=== PATIENT | male | born 1980 | race Caucasian/White ===

== ENCOUNTER 2017-04-21 19:51 | Emergency (ER) | payer OTHER ==
[~2017-04-21] VITALS: Ht 176.5 cm; Wt 97.7 kg
[2017-04-21 19:54] VITALS: BP 139/96; PULSE 107; RESP 21; O2SAT 97
[2017-04-21 21:07] LABS: BASOPHILS % (AUTO) 0.2 % (0-3); EOSINOPHILS % (AUTO) 1.9 % (0-5); MONOCYTES % (AUTO) 5.5 % (4-12); Mean Corpuscular Hemoglobin 32.2 pg (27.0-35.0); NEUTROPHILS % (AUTO) 62.1 % (40-74); Platelet Count 273 bil/L (150-400)
--- NOTE | 2017-04-21 21:07 | DRSVH ---
PROCEDURE: X-RAY CHEST ONE VIEW, PORTABLE ([id number]) INDICATIONS: Heart palpitations, possible bradycardia TECHNIQUE: One view of the chest was acquired. COMPARISON: None. FINDINGS: Surgical changes and devices: None. Lungs and pleura: No pleural effusions or pneumothorax. Lungs are clear. Mediastinum: Mediastinal contours appear normal. Heart size is normal. Bones and chest wall: No suspicious bony lesions. Overlying soft tissues appear unremarkable. IMPRESSION: No acute cardiopulmonary findings. Dictated by: Dia Caldwell M.D. on 04/21/2017 at 21:06 Approved by: Dia Caldwell M.D. on 04/21/2017 at 21:06
[2017-04-21 21:29] LABS: TROPONIN T 0.01 ug/L (0.0-0.011)
[2017-04-21 21:41] LABS: Magnesium 2.1 mg/dL (1.6-2.6)
[2017-04-21 21:53] VITALS: BP 149/99; PULSE 88; RESP 17; O2SAT 96
--- NOTE | 2017-04-21 21:54 | ED.REPORT ---
HPI-General Illness Date of Service Apr 21, 2017 ED Provider: Roderick Levi MD 36 y/o male with a hx of anxiety presents to the ED complaining of heart palpitations, onset this morning. The pt repeats "I am so nervous right now. I am afraid I might need surgery" while providing history. He states he has experienced palpitations "most of his life" but he was concerned today because his heart rate was also dropping to 35. He feels like it is more noticeable when he lays down. He denies diaphoresis, nausea, chest pain and limitation of daily activities or exertion due to pain or shortness of breath. Nursing Notes Stated Complaint: HEART PALPITATIONS, LOW PULSE RATE Chief Complaint: General Complaint Nursing Notes Reviewed: Yes Allergies: Coded Allergies: No Known Allergies (Unverified , 04/21/17) Scheduled Nicotine 14 mg/24 hr Patch (Nicotine 14 mg/24 hr Patch) 1 Each Patch.td24 1 PATCH TRANSDERM DAILY Nicotine 21 mg/24 hr Patch (Nicotine 21 mg/24 hr Patch) 1 Each Patch.dysq 1 PATCH TRANSDERM DAILY Nicotine 7 mg/24 hr Patch (Nicotine 7 mg/24 hr Patch) 1 Each Patch.td24 1 PATCH TRANSDERM DAILY General Time Seen by MD: 21:50 Chief Complaint Other (palpitations) Hx Obtained From: Patient Arrived By: Walk-in Sudden in Onset?: No Onset Occurred: 9 - 12 hours ago Symptom Duration: Since onset Severity: Current: No pain currently Severity: Maximum: No pain Recent Healthcare: No recent doctor visit Similar Sx Previous: Yes Past Medical History Past Medical History Anxiety Past Surgical History none reported Smoking History Current Every Day Smoker (smokes a pack and a half per day) Social History Alcohol Use: "Social" Drug Use: THC (social) Other Social History: Good social support Ambulatory Status Independent Review of Systems Reports: Palpitations Reports: low heart rate Full Review of Systems Respiratory: Denies: Shortness of breath Cardiovascular: Denies: Chest pain GI: Denies: Nausea Skin: Denies Diaphoresis Psychiatric: Reports: Anxiety Complete sys rev & neg: except as marked. Physical Exam Vital Signs Vital Signs Date Time Temp Pulse Resp B/P Pulse Ox O2 Delivery O2 Flow Rate FiO2 04/21/17 23:17 91 21 129/90 96 Room Air 04/21/17 22:30 113 123/94 04/21/17 22:29 103 132/101 04/21/17 22:27 88 138/91 04/21/17 21:53 88 17 149/99 96 Room Air 04/21/17 19:54 36.9 107 21 139/96 97 Room Air Initial VS: Reviewed Head / Eyes: Atraumatic, Normocephalic, PERRL Neck: Supple, Non-tender, Full range of motion Respiratory: Breath sounds normal, Clear to auscultation, No respiratory distress Abdomen / GI: Soft, Non-tender Extremities: Vascular intact, Neuro intact, No swelling, No tenderness Skin: Warm, Dry, No cyanosis Neurologic: Alert, Oriented, Nonfocal General/Constitutional: Awake, Alert, Cooperative Behavior: Positive: Anxious Respiratory / Chest: Atraumatic, Breath sounds NL, Breath sounds = bilat, No respiratory distress, No rales, No rhonchi, No wheezing Cardiovascular: Heart sounds NL, No gallop, No murmurs Heart Rate / Rhythm: Positive: Tachycardia (intermittent) Interpretation & Diagnostics Lab Results Interpretation Result Diagram: 04/21/17205304/21/172053 Test 04/21/17 20:54 04/21/17 22:00 White Blood Count 15.2th/mm3 (3.8-10.1) Red Blood Count 5.28mil/mm3 (4.40-5.80) Hemoglobin 17.0g/dL (13.8-17.2) Hematocrit 49.1% (41.0-50.0) Mean Corpuscular Volume 93.0fL (81-100) Mean Corpuscular Hemoglobin 32.2pg (27.0-35.0) Mean Corpuscular Hemoglobin Concent 34.6% (32.0-37.0) Red Cell Distribution Width 13.4% (12.3-15.4) Platelet Count 273bil/L (150-400) Neutrophils (%) (Auto) 62.1% (40-74) Lymphocytes (%) (Auto) 30.0% (14-46) Monocytes (%) (Auto) 5.5% (4-12) Eosinophils (%) (Auto) 1.9% (0-5) Basophils (%) (Auto) 0.2% (0-3) Hold Purple Top Tube Received (Received) Hold Blue Top Tube Received (Received) Sodium Level 138mEq/L (134-144) Potassium Level 4.1mEq/L (3.5-5.2) Chloride Level 99mEq/L (97-108) Carbon Dioxide Level 20mmol/L (18-29) Blood Urea Nitrogen 16mg/dL (6-20) Creatinine 0.94mg/dL (0.76-1.27) Estimat Glomerular Filtration Rate 97mL/min (>59) Glucose Level 92mg/dL (60-99) Calcium Level 10.0mg/dL (8.5-10.1) Magnesium Level 2.1mg/dL (1.6-2.6) Total Bilirubin 0.3mg/dL (0.0-1.2) Aspartate Amino Transf (AST/SGOT) 22U/L (0-50) Alanine Aminotransferase (ALT/SGPT) 24U/L (0-44) Alkaline Phosphatase 80U/L (25-150) Troponin T 0.010ug/L (0.0-0.011) Total Protein 8.0g/dL (6.4-8.4) Albumin 4.6g/dL (3.4-5.0) Hold [place] Top Tube Received (Received) Hold [place] Top Tube Received (Received) Hold Urine Received (Received) ECG Interpretation ECG Interpretation: Normal sinus rhythm. Rate 97. Probable left atrial enlargement. Time: 20:42 X-Ray Chest Interpretation Chest Xray Interpretation: IMPRESSION: No acute cardiopulmonary findings. Dictated by: Dia Caldwell M.D. on 04/21/2017 at 21:06 Approved by: Dia Caldwell M.D. on 04/21/2017 at 21:06 View: Portable, 1 view Interpretation / Wet Read by: Interpret - Radiologist Re-Eval/Medical Decision Med Decision/Clinical Course 36-year-old presents with palpitations and anxiety. He has no significant orthostasis on evaluation here. He has atrial premature contractions on the monitor and is aware of the subsequent beats after compensatory pause. Flexion lites are unremarkable. He was hydrated with a liter fluid and is now discharged in stable condition for follow-up with PCP. Smoking cessation discussed in detail and nicotine patches provided. Smokes a pack and half daily but seems motivated to quit. Vistaril provided tonight for his anxiety. Time of Eval: 22:20 Re-Evaluation/Progress Note: Rechecked pt. Discussed lab results, imaging results, diagnosis and plan to take another set of vitals. Discussed the plan to discharge after administration of IV fluids. Pt understands and agrees with the plan. F/U instructions and RTER warning given. All questions addressed. Counseled Regarding: Diagnosis, Lab results, Need for follow-up, When/why to return to ED Discharge & Departure Primary Impression: Heart palpitations Additional Impression: Anxiety Disposition: Home Discharge Condition All VS Reviewed: Yes Condition: Stable Patient Instructions: Heart Palpitations (ED) Additional Instructions: The extra beats you are having were visualized here on our recorder, and are benign. Your blood pressure is stable both lying and standing. Your pulse does bump up from the mid 80s to the low 100s, but you do not have a thirty point jump at this point. It is critical that you quit smoking.. He may begin nicotine patches to accomplish that. Follow-up with your doctor in the office. Return if any immediate issues. Referrals: [facility] Scribe Attestation Portions of this note were transcribed by Krissy Boss. I, , personally performed the history, physical exam and medical decision- making;I reviewed and confirmed the accuracy of the information in the transcribed note. Signed by Lance Wetzel. 04/21/17 23:25 copies to: [facility] Roderick Levi MD Apr 21, 2017 21:54 Krissy Boss Apr 21, 2017 22:01
[2017-04-21 22:27] VITALS: BP 138/91; PULSE 88
[2017-04-21 22:29] VITALS: BP 132/101; PULSE 103
[2017-04-21 22:30] VITALS: BP 123/94; PULSE 113
[2017-04-21] MEDS ORDERED: 0.9% Sodium Chloride 1,000 ML IV ONE (22:45)
[2017-04-21] MEDS ORDERED: NICO1PAT16 TRANSDERM (22:53)
[2017-04-21] MEDS ORDERED: NIC7 TRANSDERM (22:53)
[2017-04-21] MEDS ORDERED: NICO1PAT5 TRANSDERM (22:53)
[2017-04-21 23:17] VITALS: BP 129/90; PULSE 91; RESP 21; O2SAT 96
== END 2017-04-21 23:31 | disposition home or self-care (01) ==
LOC: SED 19:51
DX: R00.2 Palpitations (principal); F41.9 Anxiety disorder, unspecified; F17.200 Nicotine dependence, unspecified, uncomplicated
CPT/HCPCS: 36415; 71010; 80053; 83735; 84484; 85025; 93005; 96360; 99285; J7030; Q0177